=== PATIENT | male | born 1935 | race African-American/Black ===

== ENCOUNTER 2017-04-11 11:59 | Emergency (ER) | payer OTHER ==
[~2017-04-11] VITALS: Ht 177.8 cm; Wt 70.3 kg
--- NOTE | ~2017-04-11 | EKG ---
[address] [place] [address] ELECTROCARDIOGRAM REPORT Name: LITZY MARTÍNEZ [facility] [id number] Admission: 04/11/17 Attend Phys: Discharge: 04/11/17 Date of : 31 Report #: [id number] THIS REPORT FOR: //name// [facility] ED Test Date: 2017-04-11 Test Time: 12:02:36 Pat Name: LITZY MARTÍNEZ Department: Room: Gender: M Propeller Tester: MARNIE : 1935 Requested By: Nadege Yeh Order Number: [id number] MD: Brent Christina Measurements Intervals [place] Rate: 66 P: 17 NV: 165 QRS: -25 QRSD: 91 T: 23 QT: 406 QTc: 426 Interpretive Statements Sinus rhythm Borderline left axis deviation Abnormal R-wave progression, early transition Compared to ECG 05/16/2014 08:17:11 Inferior T-wave abnormality less pronounced Electronically Signed On 04-12-2017 8:04:43 CDT by Brent Christina [email or web address] <ELECTRONICALLY SIGNED> By: Brent Christina MD, [facility] 04/12/17 [id number] 120 Brent Christina MD, [facility] /EPI
[~2017-04-11 11:59] MED LIST: AMBIEN 10 MG TA10 MG PO; AMBIEN 5 MG TABL5 M1 PO; ASPIRIN EC81 M1 PO; ATORVASTATIN CA40 MG PO; BAYER CHEWABLE81 MG PO; FLAGYL500 MG PO; IMODIUM ADVANC1 EAC1 PO; LOPERAMIDE 2 MG2 M1 PO; LOPRESSOR25 PO; NITROSTAT0.4 M1 SL; NO HOME MEDS; NOHOMEMEDICATIONS; NORCO 5-325 TA1 EACH PO; PLAVIX 75 MG TA75 M1 PO; TAMSULOSIN HCL0.4 MG PO; TYLENOL325 MG PO; ZOFRAN ODT4 MG PO
[2017-04-11 12:28] LABS: ABSOLUTE NEUTROPHILS 2.4 thou/uL (1.4-8.2); BASOPHILS 0.8 % (0.0-2.0); EOSINOPHILS 3.3 % (0.0-3.0); HEMATOCRIT 38.1 % (42.0-52.0); HEMOGLOBIN 13.2 gm/dL (14.0-18.0); LYMPHOCYTES 40.4 % (24.0-44.0); MCH 31.7 pg (26.0-34.0); MCHC 34.8 g/dL (28.0-37.0); MCV 91.2 fL (80.0-100.0); MONOCYTES 10.1 % (1.0-8.0); PLATELET COUNT 244 thou/uL (150-400); POLYS 45.4 % (36.0-66.0); RBC 4.17 mil/uL (4.50-6.00); RDW 12.6 % (10.5-14.5); WBC 5.4 thou/uL (4.0-11.0)
[2017-04-11 12:30] LABS: MANUAL DIFF NO
[2017-04-11 12:34] LABS: ANION GAP 6 mmol/L (7-16); BUN 10 mg/dL (7-18); CALCIUM 8.7 mg/dL (8.5-10.1); CHLORIDE 108 mmol/L (98-107); CO2 28 mmol/L (21-32); GLUCOSE 108 mg/dL (74-106); POTASSIUM 3.6 mmol/L (3.5-5.1); SODIUM 142 mmol/L (136-145)
[2017-04-11 12:43] LABS: TROPONIN-I < 0.04 ng/mL (<0.04-0.07)
[2017-04-11] MEDS ORDERED: PRILOSEC OTC20 MG PO (14:41)
== END 2017-04-11 15:17 | disposition home or self-care (01) ==
LOC: ER 11:59
PROVIDERS: Emergency Medicine
DX: R07.9 Chest pain, unspecified (principal); E78.00 Pure hypercholesterolemia, unspecified; Z85.46 Personal history of malignant neoplasm of prostate; Z85.89 Personal history of malignant neoplasm of other organs and systems; Z87.891 Personal history of nicotine dependence